=== PATIENT | female | born 1960 | race Caucasian/White ===

== ENCOUNTER 2017-09-26 15:09 | Emergency (ER) | payer BC ==
[2017-09-26] MEDS: morphine 4 MG/ML VIAL IV (17:15)
[2017-09-26] MEDS: ONDANSETRON 4 MG INJ IV (17:15)
[2017-09-26] MEDS: SOD CHLORIDE 0.9% 1,000 ML IV (17:15)
[2017-09-26 17:35] LABS: ADD MAN DIFF? NO
[2017-09-26 17:42] LABS: BASOPHILS % 0.6 % (0.0-2.0); EOSINOPHILS % 0.6 % (0.0-7.0); HEMATOCRIT 36.8 % (37.0-47.0); HEMOGLOBIN 12.9 g/dl (12.0-16.0); LYMPHOCYTES % 30.7 % (15.0-51.0); MEAN CORPUSCULAR HEMOGLOBIN 30.6 pg (29.0-33.0); MEAN CORPUSCULAR HGB CONC 35.1 g/dl (32.0-37.0); MEAN CORPUSCULAR VOLUME 87.2 fl (82.0-101.0); MEAN PLATELET VOLUME 11.1 fl (7.4-10.4); MONOCYTE # 0.1 10^3/ul (0.3-0.9); MONOCYTES % 3.4 % (0.0-11.0); NEUTROPHIL # 2.1 10^3/ul (1.6-7.5); NEUTROPHILS % 64.4 % (39.0-77.0); PLATELET COUNT 234 10^3/UL (140-415); RED BLOOD COUNT 4.22 10^6/ul (4.20-5.40); RED CELL DISTRIBUTION WIDTH 15.3 % (11.5-14.5)
[2017-09-26 17:42] LABS: WHITE BLOOD COUNT 3.2 10^3/ul (4.8-10.8)
[2017-09-26 17:56] LABS: ALANINE AMINOTRANSFERASE 31 IU/L (13-69); ALBUMIN 4.6 g/dl (3.3-4.9); ALBUMIN/GLOBULIN RATIO 1.43; ALKALINE PHOSPHATASE 46 IU/L (42-121); ASPARTATE AMINO TRANSFERASE 30 IU/L (15-46); BILIRUBIN,INDIRECT 0.6 mg/dl (0-1.1); BILIRUBIN,TOTAL 0.6 mg/dl (0.2-1.3); BLOOD UREA NITROGEN 13 mg/dl (7-20); CALCIUM 9.7 mg/dl (8.4-10.2); CARBON DIOXIDE 25 mmol/L (21-31); CHLORIDE 101 mmol/L (97-110); CREATINE KINASE 36 IU/L (23-200); CREATININE 0.63 mg/dl (0.44-1.00); GLUCOSE 274 mg/dl (70-220); SODIUM 137 mmol/L (135-144); TOTAL PROTEIN 7.8 g/dl (6.1-8.1)
[2017-09-26 17:59] LABS: ANION GAP 15 (8-16); POTASSIUM 4.3 mmol/L (3.5-5.1)
[2017-09-26 18:08] LABS: TROPONIN-I < 0.012 ng/ml (0.00-0.12)
== END 2017-09-26 18:51 | disposition home or self-care (01) ==
LOC: FTE 15:09
DX: M79.1 Myalgia (principal); E11.9 Type 2 diabetes mellitus without complications; C50.919 Malignant neoplasm of unspecified site of unspecified female breast
CPT/HCPCS: 36415; 80053; 82550; 84484; 85025; 96374; 96375; 99284-25

== ENCOUNTER 2017-10-15 09:33 | Emergency (ER) | payer BC ==
[2017-10-15] MEDS: HYDROmorphONE 1 MG/ML SYG IV (13:04)
[2017-10-15 13:16] LABS: ADD MAN DIFF? NO
[2017-10-15 13:18] LABS: WHITE BLOOD COUNT 2.8 10^3/ul (4.8-10.8)
[2017-10-15 13:18] LABS: ABNORMAL IP MESSAGE 1; BASOPHILS % 0.7 % (0.0-2.0); EOSINOPHILS # 0.1 10^3/ul (0.0-0.5); EOSINOPHILS % 3.2 % (0.0-7.0); HEMATOCRIT 36.7 % (37.0-47.0); HEMOGLOBIN 12.6 g/dl (12.0-16.0); LYMPHOCYTES # 0.6 10^3/ul (0.8-2.9); LYMPHOCYTES % 20.4 % (15.0-51.0); MEAN CORPUSCULAR HEMOGLOBIN 30.4 pg (29.0-33.0); MEAN CORPUSCULAR HGB CONC 34.3 g/dl (32.0-37.0); MEAN CORPUSCULAR VOLUME 88.6 fl (82.0-101.0); MONOCYTE # 0.1 10^3/ul (0.3-0.9); MONOCYTES % 2.9 % (0.0-11.0); NEUTROPHILS % 72.4 % (39.0-77.0); PLATELET COUNT 249 10^3/UL (140-415); RED BLOOD COUNT 4.14 10^6/ul (4.20-5.40); RED CELL DISTRIBUTION WIDTH 15.3 % (11.5-14.5)
[2017-10-15 13:20] LABS: ADD UMIC YES; UR ASCORBIC ACID 20 mg/dL (NEGATIVE); UR BILIRUBIN (Dip) NEGATIVE (NEGATIVE); UR BLOOD (Dip) NEGATIVE (NEGATIVE); UR CLARITY CLEAR (CLEAR); UR COLOR YELLOW (YELLOW); UR GLUCOSE (Dip) 2+ mg/dL (NEGATIVE); UR KETONES (Dip) NEGATIVE (NEGATIVE); UR LEUKOCYTE ESTERASE (Dip) 1+ Leu/ul (NEGATIVE); UR NITRITE (Dip) NEGATIVE (NEGATIVE); UR RBC 1 /HPF (0-5); UR SPECIFIC GRAVITY (Dip) 1.023 (1.003-1.030); UR TOTAL PROTEIN (Dip) NEGATIVE (NEGATIVE); UR UROBILINOGEN (Dip) NEGATIVE (NEGATIVE); UR WBC 5 /HPF (0-5)
[2017-10-15 13:32] LABS: INR 0.93; PARTIAL THROMBOPLASTIN TIME 26.2 Sec (25.0-35.0); PROTIME 12.5 Sec (11.9-14.9)
[2017-10-15 13:34] LABS: ALANINE AMINOTRANSFERASE 37 IU/L (13-69); ALBUMIN 4.3 g/dl (3.3-4.9); ALBUMIN/GLOBULIN RATIO 1.13; ALKALINE PHOSPHATASE 55 IU/L (42-121); ANION GAP 13 (8-16); ASPARTATE AMINO TRANSFERASE 33 IU/L (15-46); BILIRUBIN,INDIRECT 0.6 mg/dl (0-1.1); BILIRUBIN,TOTAL 0.6 mg/dl (0.2-1.3); BLOOD UREA NITROGEN 10 mg/dl (7-20); CALCIUM 9.6 mg/dl (8.4-10.2); CARBON DIOXIDE 25 mmol/L (21-31); CHLORIDE 103 mmol/L (97-110); CREATININE 0.53 mg/dl (0.44-1.00); GLUCOSE 217 mg/dl (70-220); POTASSIUM 4.4 mmol/L (3.5-5.1); SODIUM 137 mmol/L (135-144); TOTAL PROTEIN 8.1 g/dl (6.1-8.1)
[2017-10-15 13:37] LABS: LACTIC ACID 1.9 mmol/L (0.5-2.0)
[2017-10-15 13:46] LABS: TROPONIN-I 0.023 ng/ml (0.00-0.12)
== END 2017-10-15 16:35 | disposition home or self-care (01) ==
LOC: FTE 09:33
DX: M25.552 Pain in left hip (principal); M25.551 Pain in right hip; R07.9 Chest pain, unspecified; C50.911 Malignant neoplasm of unspecified site of right female breast; E11.9 Type 2 diabetes mellitus without complications
CPT/HCPCS: 36415; 71045; 80053; 81001; 83605; 84484; 85025; 85610; 85730; 87040; 87086; 87400; 93005; 96374; 99285-25

== ENCOUNTER 2017-11-05 16:19 | Emergency (ER) | payer BC ==
[2017-11-05] MEDS ORDERED: VANCOMYCIN 1 GM (PMX) 250 ML IVPB (18:30)
[2017-11-05 18:43] LABS: ADD MAN DIFF? NO
[2017-11-05] MEDS: LACTATED RINGER S IV (18:44)
[2017-11-05 18:45] LABS: WHITE BLOOD COUNT 2.8 10^3/ul (4.8-10.8)
[2017-11-05 18:45] LABS: BASOPHILS % 0.4 % (0.0-2.0); EOSINOPHILS # 0.1 10^3/ul (0.0-0.5); EOSINOPHILS % 3.6 % (0.0-7.0); HEMATOCRIT 35.9 % (37.0-47.0); HEMOGLOBIN 12.3 g/dl (12.0-16.0); LYMPHOCYTES # 0.8 10^3/ul (0.8-2.9); MEAN CORPUSCULAR HEMOGLOBIN 30.1 pg (29.0-33.0); MEAN CORPUSCULAR HGB CONC 34.3 g/dl (32.0-37.0); MEAN PLATELET VOLUME 10.6 fl (7.4-10.4); MONOCYTE # 0.1 10^3/ul (0.3-0.9); MONOCYTES % 2.5 % (0.0-11.0); NEUTROPHIL # 1.8 10^3/ul (1.6-7.5); NEUTROPHILS % 64.5 % (39.0-77.0); PLATELET COUNT 168 10^3/UL (140-415); RED BLOOD COUNT 4.08 10^6/ul (4.20-5.40); RED CELL DISTRIBUTION WIDTH 14.7 % (11.5-14.5)
[2017-11-05] MEDS: CEFEPIME 2GM/50 ML (PMX) 50 ML IVPB (18:45)
[2017-11-05] MEDS: KETOROLAC 15 MG INJ IV (18:45)
[2017-11-05 19:00] LABS: INR 0.89; PROTIME 12.1 Sec (11.9-14.9); PT RATIO 0.9
[2017-11-05 19:01] LABS: PARTIAL THROMBOPLASTIN TIME 26.6 Sec (25.0-35.0)
[2017-11-05 19:08] LABS: ALANINE AMINOTRANSFERASE 29 IU/L (13-69); ALBUMIN/GLOBULIN RATIO 1.17; ALKALINE PHOSPHATASE 52 IU/L (42-121); ANION GAP 16 (8-16); ASPARTATE AMINO TRANSFERASE 26 IU/L (15-46); BILIRUBIN,INDIRECT 0.3 mg/dl (0-1.1); BILIRUBIN,TOTAL 0.3 mg/dl (0.2-1.3); BLOOD UREA NITROGEN 12 mg/dl (7-20); CALCIUM 9.2 mg/dl (8.4-10.2); CARBON DIOXIDE 25 mmol/L (21-31); CHLORIDE 103 mmol/L (97-110); CREATININE 0.49 mg/dl (0.44-1.00); GLUCOSE 245 mg/dl (70-220); POTASSIUM 4.3 mmol/L (3.5-5.1); SODIUM 140 mmol/L (135-144); TOTAL PROTEIN 7.4 g/dl (6.1-8.1)
[2017-11-05 19:08] LABS: LACTIC ACID 1.9 mmol/L (0.5-2.0)
[2017-11-05 19:10] LABS: CREATINE KINASE 33 IU/L (23-200)
[2017-11-05 19:19] LABS: TROPONIN-I 0.016 ng/ml (0.00-0.12)
[2017-11-05] MEDS: morphine 4 MG/ML VIAL IV (19:48)
== END 2017-11-05 20:17 | disposition home or self-care (01) ==
LOC: E/R 20:17
DX: M79.1 Myalgia (principal); M79.605 Pain in left leg; M79.604 Pain in right leg; E11.9 Type 2 diabetes mellitus without complications
CPT/HCPCS: 71045; 80053; 82550; 83605; 84484; 85025; 85610; 85730; 87040; 93005; 93970; 96374; 96375; 99285-25

== ENCOUNTER 2017-11-07 14:01 | Emergency (ER) | payer BC ==
[2017-11-07] MEDS: ONDANSETRON 4 MG INJ IV (18:57)
[2017-11-07] MEDS: SOD CHLORIDE 0.9% 1,000 ML IV (18:57)
[2017-11-07] MEDS: morphine 4 MG/ML VIAL IV (18:57)
[2017-11-07 19:07] LABS: ADD MAN DIFF? NO
[2017-11-07 19:09] LABS: BASOPHILS % 0.4 % (0.0-2.0); EOSINOPHILS % 1.1 % (0.0-7.0); HEMATOCRIT 34.8 % (37.0-47.0); LYMPHOCYTES % 35.8 % (15.0-51.0); MEAN CORPUSCULAR HEMOGLOBIN 29.8 pg (29.0-33.0); MEAN CORPUSCULAR HGB CONC 34.5 g/dl (32.0-37.0); MEAN CORPUSCULAR VOLUME 86.4 fl (82.0-101.0); MEAN PLATELET VOLUME 10.8 fl (7.4-10.4); MONOCYTES % 1.5 % (0.0-11.0); NEUTROPHIL # 1.6 10^3/ul (1.6-7.5); NEUTROPHILS % 60.8 % (39.0-77.0); PLATELET COUNT 189 10^3/UL (140-415); RED BLOOD COUNT 4.03 10^6/ul (4.20-5.40); RED CELL DISTRIBUTION WIDTH 14.6 % (11.5-14.5)
[2017-11-07 19:09] LABS: WHITE BLOOD COUNT 2.7 10^3/ul (4.8-10.8)
[2017-11-07 19:30] LABS: ANION GAP 13 (8-16); BLOOD UREA NITROGEN 9 mg/dl (7-20); CALCIUM 9.3 mg/dl (8.4-10.2); CARBON DIOXIDE 27 mmol/L (21-31); CHLORIDE 105 mmol/L (97-110); CREATININE 0.44 mg/dl (0.44-1.00); GLUCOSE 216 mg/dl (70-220); SODIUM 141 mmol/L (135-144)
== END 2017-11-07 20:38 | disposition home or self-care (01) ==
LOC: E/R 14:01
DX: C50.911 Malignant neoplasm of unspecified site of right female breast (principal); G89.4 Chronic pain syndrome; I10 Essential (primary) hypertension; E11.9 Type 2 diabetes mellitus without complications
CPT/HCPCS: 36415; 80048; 85025; 96374; 96375; 99284-25

== ENCOUNTER 2018-08-19 17:47 | Emergency (ER) | payer BC ==
[2018-08-19] MEDS ORDERED: SODIUM CHLORIDE 0.9% 1L BAG IV* (18:12)
[2018-08-19 18:49] LABS: WHITE BLOOD COUNT 3.9 10^3/ul (4.8-10.8)
[2018-08-19 18:49] LABS: HEMATOCRIT 33.5 % (37.0-47.0); HEMOGLOBIN 10.9 g/dl (12.0-16.0); MEAN CORPUSCULAR HEMOGLOBIN 28.8 pg (29.0-33.0); MEAN CORPUSCULAR HGB CONC 32.5 g/dl (32.0-37.0); MEAN CORPUSCULAR VOLUME 88.4 fl (82.0-101.0); MEAN PLATELET VOLUME 9.6 fl (7.4-10.4); PLATELET COUNT 214 10^3/UL (140-415); RED BLOOD COUNT 3.79 10^6/ul (4.20-5.40); RED CELL DISTRIBUTION WIDTH 12.8 % (11.5-14.5)
[2018-08-19 18:52] LABS: ADD MAN DIFF? YES
[2018-08-19 18:58] LABS: ADD UMIC YES; UR ASCORBIC ACID NEGATIVE (NEGATIVE); UR BACTERIA FEW /HPF (NONE SEEN); UR BILIRUBIN (Dip) NEGATIVE (NEGATIVE); UR BLOOD (Dip) NEGATIVE (NEGATIVE); UR CLARITY CLOUDY (CLEAR); UR COLOR YELLOW (YELLOW); UR GLUCOSE (Dip) NEGATIVE (NEGATIVE); UR KETONES (Dip) NEGATIVE (NEGATIVE); UR LEUKOCYTE ESTERASE (Dip) 3+ Leu/ul (NEGATIVE); UR NITRITE (Dip) NEGATIVE (NEGATIVE); UR RBC 1 /HPF (0-5); UR SPECIFIC GRAVITY (Dip) 1.018 (1.003-1.030); UR SQUAMOUS EPITHELIAL CELL FEW /HPF (FEW); UR TOTAL PROTEIN (Dip) NEGATIVE (NEGATIVE); UR UROBILINOGEN (Dip) 2+ mg/dL (NEGATIVE); UR WBC 28 /HPF (0-5)
[2018-08-19 19:05] LABS: INR 0.98; PROTIME 13.1 Sec (11.9-14.9)
[2018-08-19 19:06] LABS: PARTIAL THROMBOPLASTIN TIME 29.9 Sec (23.0-35.0)
[2018-08-19 19:10] LABS: ALANINE AMINOTRANSFERASE 15 IU/L (13-69); ALBUMIN 3.9 g/dl (3.3-4.9); ALBUMIN/GLOBULIN RATIO 1.05; ALKALINE PHOSPHATASE 53 IU/L (42-121); ANION GAP 8 (5-13); ASPARTATE AMINO TRANSFERASE 22 IU/L (15-46); BILIRUBIN,INDIRECT 0.2 mg/dl (0-1.1); BILIRUBIN,TOTAL 0.2 mg/dl (0.2-1.3); BLOOD UREA NITROGEN 8 mg/dl (7-20); CALCIUM 9.1 mg/dl (8.4-10.2); CARBON DIOXIDE 30 mmol/L (21-31); CHLORIDE 103 mmol/L (97-110); CREATININE 0.67 mg/dl (0.44-1.00); Estimated GFR > 60 mL/min (>60); GLUCOSE 105 mg/dl (70-220); POTASSIUM 3.8 mmol/L (3.5-5.1); SODIUM 141 mmol/L (135-144); TOTAL PROTEIN 7.6 g/dl (6.1-8.1)
[2018-08-19 19:17] LABS: B-TYPE NATRIURETIC PEPTIDE 185 PG/ML (0-125)
== END 2018-08-19 19:54 | disposition home or self-care (01) ==
LOC: E/R 17:47
DX: R60.0 Localized edema (principal); E11.9 Type 2 diabetes mellitus without complications; I10 Essential (primary) hypertension; M79.671 Pain in right foot; Z79.4 Long term (current) use of insulin; Z85.3 Personal history of malignant neoplasm of breast
CPT/HCPCS: 36415; 71045; 80053; 81001; 83605; 83880; 85025; 85610; 85730; 87040; 99284-25

== ENCOUNTER 2018-08-21 13:45 | Emergency (ER) | payer BC | END 2018-08-21 14:50 | disposition home or self-care (01) | LOC: E/R 13:45 | DX: M79.674 Pain in right toe(s) (principal); E11.8 Type 2 diabetes mellitus with unspecified complications; M79.675 Pain in left toe(s); E11.21 Type 2 diabetes mellitus with diabetic nephropathy; Z79.4 Long term (current) use of insulin; Z85.3 Personal history of malignant neoplasm of breast | CPT/HCPCS: 82962; 99282 ==

== ENCOUNTER 2018-09-11 13:30 | Emergency (ER) | payer BC ==
[2018-09-11] MEDS: KETOROLAC 30 MG INJ IM (16:21)
== END 2018-09-11 16:36 | disposition home or self-care (01) ==
LOC: E/R 13:30
DX: M79.671 Pain in right foot (principal); M79.672 Pain in left foot; I10 Essential (primary) hypertension; E11.9 Type 2 diabetes mellitus without complications; C50.919 Malignant neoplasm of unspecified site of unspecified female breast; Z79.4 Long term (current) use of insulin
CPT/HCPCS: 96372; 99284-25

== ENCOUNTER 2018-10-02 12:04 | Emergency (ER) | payer BC ==
[2018-10-02] MEDS: HYDROCODONE/APAP (5/325) TAB PO (14:05)
== END 2018-10-02 14:36 | disposition home or self-care (01) ==
LOC: FTE 12:04
DX: M79.674 Pain in right toe(s) (principal); M79.675 Pain in left toe(s); E11.40 Type 2 diabetes mellitus with diabetic neuropathy, unspecified; M79.672 Pain in left foot; M79.671 Pain in right foot; C50.919 Malignant neoplasm of unspecified site of unspecified female breast; Z79.4 Long term (current) use of insulin
CPT/HCPCS: 82962; 99283

== ENCOUNTER 2018-10-24 16:52 | Inpatient (IN) | payer BC ==
[2018-10-24 22:33] LABS: ADD MAN DIFF? NO
[2018-10-24 22:34] LABS: BASOPHILS % 0.5 % (0.0-2.0); EOSINOPHILS # 0.1 10^3/ul (0.0-0.5); EOSINOPHILS % 1.6 % (0.0-7.0); HEMATOCRIT 38.1 % (37.0-47.0); HEMOGLOBIN 12.1 g/dl (12.0-16.0); LYMPHOCYTES # 1.2 10^3/ul (0.8-2.9); LYMPHOCYTES % 31.3 % (15.0-51.0); MEAN CORPUSCULAR HEMOGLOBIN 27.5 pg (29.0-33.0); MEAN CORPUSCULAR HGB CONC 31.8 g/dl (32.0-37.0); MEAN CORPUSCULAR VOLUME 86.6 fl (82.0-101.0); MEAN PLATELET VOLUME 10.8 fl (7.4-10.4); MONOCYTE # 0.4 10^3/ul (0.3-0.9); MONOCYTES % 9.5 % (0.0-11.0); NEUTROPHIL # 2.2 10^3/ul (1.6-7.5); NEUTROPHILS % 56.8 % (39.0-77.0); PLATELET COUNT 217 10^3/UL (140-415); RED CELL DISTRIBUTION WIDTH 13.6 % (11.5-14.5)
[2018-10-24 22:34] LABS: WHITE BLOOD COUNT 3.8 10^3/ul (4.8-10.8)
[2018-10-24 22:38] LABS: INR 0.89; PROTIME 12.2 Sec (11.9-14.9)
[2018-10-24 22:39] LABS: PARTIAL THROMBOPLASTIN TIME 28.9 Sec (23.0-35.0)
[2018-10-24 22:41] LABS: ANION GAP 7 (5-13); BLOOD UREA NITROGEN 7 mg/dl (7-20); CALCIUM 9.6 mg/dl (8.4-10.2); CARBON DIOXIDE 30 mmol/L (21-31); CHLORIDE 102 mmol/L (97-110); Estimated GFR > 60 mL/min (>60); GLUCOSE 224 mg/dl (70-220); POTASSIUM 3.9 mmol/L (3.5-5.1); SODIUM 139 mmol/L (135-144)
[2018-10-24 22:52] LABS: TROPONIN-I < 0.012 ng/ml (0.000-0.120)
[2018-10-25] MEDS ORDERED: NACL 0.9% 3 ML SYG IV (00:30)
[2018-10-25] MEDS ORDERED: ONDANSETRON 4 MG INJ IV (00:30)
[2018-10-25] MEDS ORDERED: ACETAMINOPHEN 325 MG TAB PO (00:30)
[2018-10-25] MEDS ORDERED: DEXTROSE 50% 50 ML SYRINGE IV ×2 (01:00)
[2018-10-25] MEDS ORDERED: GLUCOSE GEL 15 GRAM TUBE BUCCAL (01:00)
[2018-10-25] MEDS ORDERED: GLUCAGON 1 MG INJ IM (01:00)
[2018-10-25] MEDS ORDERED: GLUCOSE GEL 15 GRAM TUBE PO ×2 (01:00)
[2018-10-25] MEDS: traMADol 50 MG TAB PO (01:06)
[2018-10-25] MEDS: ACCU-CHEK XX (02:00)
[2018-10-25 02:32] LABS: CREATINE KINASE 48 IU/L (23-200)
[2018-10-25 02:45] LABS: CK INDEX 0.6; CK-MB 0.28 ng/ml (0.0-2.4); TROPONIN-I < 0.012 ng/ml (0.000-0.120)
[2018-10-25] MEDS: INSULIN ASPART [NOVOLOG] 3 ML PEN SC ×5 (02:50→20:32)
[2018-10-25] MEDS: HYDROCODONE/APAP (5/325) TAB PO ×3 (05:26→20:26)
[2018-10-25 06:47] LABS: ADD MAN DIFF? NO
[2018-10-25 06:52] LABS: BASOPHILS % 0.2 % (0.0-2.0); EOSINOPHILS # 0.1 10^3/ul (0.0-0.5); EOSINOPHILS % 1.4 % (0.0-7.0); HEMATOCRIT 35.7 % (37.0-47.0); HEMOGLOBIN 11.6 g/dl (12.0-16.0); LYMPHOCYTES # 1.1 10^3/ul (0.8-2.9); LYMPHOCYTES % 25.5 % (15.0-51.0); MEAN CORPUSCULAR HEMOGLOBIN 27.6 pg (29.0-33.0); MEAN CORPUSCULAR HGB CONC 32.5 g/dl (32.0-37.0); MONOCYTE # 0.5 10^3/ul (0.3-0.9); MONOCYTES % 11.2 % (0.0-11.0); NEUTROPHIL # 2.6 10^3/ul (1.6-7.5); NEUTROPHILS % 61.5 % (39.0-77.0); PLATELET COUNT 198 10^3/UL (140-415); RED CELL DISTRIBUTION WIDTH 13.7 % (11.5-14.5)
[2018-10-25 06:52] LABS: WHITE BLOOD COUNT 4.3 10^3/ul (4.8-10.8)
[2018-10-25 07:06] LABS: CREATINE KINASE 40 IU/L (23-200)
[2018-10-25 07:09] LABS: ALBUMIN/GLOBULIN RATIO 1.09; ANION GAP 7 (5-13); CHOL/HDL RATIO 4.9 RATIO; Estimated GFR > 60 mL/min (>60); LDL CHOLESTEROL,CALCULATED 124 mg/dl
[2018-10-25 07:13] LABS: ALANINE AMINOTRANSFERASE 18 IU/L (13-69); ALBUMIN 3.4 g/dl (3.3-4.9); ALKALINE PHOSPHATASE 57 IU/L (42-121); ASPARTATE AMINO TRANSFERASE 18 IU/L (15-46); BILIRUBIN,INDIRECT 0.1 mg/dl (0-1.1); BILIRUBIN,TOTAL 0.1 mg/dl (0.2-1.3); BLOOD UREA NITROGEN 9 mg/dl (7-20); CALCIUM 9.2 mg/dl (8.4-10.2); CARBON DIOXIDE 28 mmol/L (21-31); CHLORIDE 107 mmol/L (97-110); CHOLESTEROL 201 mg/dl (100-200); CREATININE 0.54 mg/dl (0.44-1.00); GLUCOSE 174 mg/dl (70-220); HDL CHOLESTEROL 41 mg/dl (37-92); POTASSIUM 3.7 mmol/L (3.5-5.1); SODIUM 142 mmol/L (135-144); TOTAL PROTEIN 6.5 g/dl (6.1-8.1); TRIGLYCERIDES 182 mg/dl (0-149)
[2018-10-25 07:21] LABS: CK INDEX 0.6; CK-MB < 0.22 ng/ml (0.0-2.4); TROPONIN-I < 0.012 ng/ml (0.000-0.120)
[2018-10-25] MEDS ORDERED: INSULIN ASPART [NOVOLOG] 3 ML PEN SC (08:00)
[2018-10-25 08:03] LABS: HEMOGLOBIN A1C 7.1 % (0-5.9)
[2018-10-25] MEDS: PROPRANOLOL 10 MG TAB PO (08:29)
[2018-10-25] MEDS: ASPIRIN 81 MG TAB PO (08:30)
[2018-10-25] MEDS: LISINOPRIL 5 MG TAB PO (08:30)
[2018-10-25] MEDS: FUROSEMIDE 20 MG TAB PO (08:30)
[2018-10-25] MEDS: HEPARIN 5,000 UNIT/1 ML VIAL SC ×2 (09:01→20:36)
[2018-10-25] MEDS: INSULIN DETEMIR [LEVEMIR] (100 UNITS/ML) SYG SC (09:01)
[2018-10-25] MEDS: ANASTROZOLE 1 MG TAB PO (10:46)
[2018-10-25] MEDS: ATORVASTATIN 10 MG TAB PO (20:26)
[2018-10-25] MEDS: GABAPENTIN 300 MG CAP PO (20:26)
[2018-10-25] MEDS: INSULIN GLARGINE [LANTus] (100 UNITS/ML) SYG SC (20:33)
[2018-10-25] MEDS ORDERED: INSULIN GLARGINE [LANtus] 3 ML PEN SC (21:00)
[2018-10-26] MEDS: ACCU-CHEK XX (02:00)
[2018-10-26] MEDS: HYDROCODONE/APAP (5/325) TAB PO ×4 (02:47→21:02)
[2018-10-26 05:59] LABS: ADD MAN DIFF? NO
[2018-10-26 06:18] LABS: BASOPHILS % 0.5 % (0.0-2.0); EOSINOPHILS # 0.1 10^3/ul (0.0-0.5); EOSINOPHILS % 1.6 % (0.0-7.0); HEMATOCRIT 38.8 % (37.0-47.0); HEMOGLOBIN 12.6 g/dl (12.0-16.0); LYMPHOCYTES # 1.2 10^3/ul (0.8-2.9); LYMPHOCYTES % 27.4 % (15.0-51.0); MEAN CORPUSCULAR HEMOGLOBIN 27.5 pg (29.0-33.0); MEAN CORPUSCULAR HGB CONC 32.5 g/dl (32.0-37.0); MEAN CORPUSCULAR VOLUME 84.7 fl (82.0-101.0); MEAN PLATELET VOLUME 10.2 fl (7.4-10.4); MONOCYTE # 0.4 10^3/ul (0.3-0.9); NEUTROPHIL # 2.7 10^3/ul (1.6-7.5); PLATELET COUNT 235 10^3/UL (140-415); RED BLOOD COUNT 4.58 10^6/ul (4.20-5.40)
[2018-10-26 06:18] LABS: WHITE BLOOD COUNT 4.4 10^3/ul (4.8-10.8)
[2018-10-26 06:47] LABS: ANION GAP 11 (5-13); BLOOD UREA NITROGEN 10 mg/dl (7-20); CALCIUM 9.8 mg/dl (8.4-10.2); CARBON DIOXIDE 29 mmol/L (21-31); CHLORIDE 102 mmol/L (97-110); Estimated GFR > 60 mL/min (>60); GLUCOSE 149 mg/dl (70-220); MAGNESIUM 2.1 mg/dl (1.7-2.5); PHOSPHORUS 4.7 mg/dl (2.5-4.9); POTASSIUM 3.9 mmol/L (3.5-5.1); SODIUM 142 mmol/L (135-144)
[2018-10-26] MEDS: INSULIN ASPART [NOVOLOG] 3 ML PEN SC ×4 (08:00→20:35)
[2018-10-26] MEDS: ASPIRIN 81 MG TAB PO (08:59)
[2018-10-26] MEDS: FUROSEMIDE 20 MG TAB PO (09:00)
[2018-10-26] MEDS: HEPARIN 5,000 UNIT/1 ML VIAL SC ×2 (09:07→20:34)
[2018-10-26] MEDS: ANASTROZOLE 1 MG TAB PO (09:10)
[2018-10-26] MEDS: traMADol 50 MG TAB PO (09:53)
[2018-10-26] MEDS: ATORVASTATIN 40 MG TAB PO (20:22)
[2018-10-26] MEDS: GABAPENTIN 300 MG CAP PO (20:22)
[2018-10-26] MEDS: INSULIN GLARGINE [LANTus] (100 UNITS/ML) SYG SC (20:34)
[2018-10-27] MEDS: ACCU-CHEK XX (02:13)
[2018-10-27] MEDS: HYDROCODONE/APAP (5/325) TAB PO ×4 (03:12→21:23)
[2018-10-27 06:21] LABS: ADD MAN DIFF? NO
[2018-10-27 06:26] LABS: WHITE BLOOD COUNT 3.9 10^3/ul (4.8-10.8)
[2018-10-27 06:26] LABS: BASOPHILS % 0.3 % (0.0-2.0); EOSINOPHILS # 0.1 10^3/ul (0.0-0.5); EOSINOPHILS % 2.3 % (0.0-7.0); HEMATOCRIT 38.9 % (37.0-47.0); HEMOGLOBIN 12.5 g/dl (12.0-16.0); LYMPHOCYTES # 1.3 10^3/ul (0.8-2.9); LYMPHOCYTES % 32.7 % (15.0-51.0); MEAN CORPUSCULAR HEMOGLOBIN 27.5 pg (29.0-33.0); MEAN CORPUSCULAR HGB CONC 32.1 g/dl (32.0-37.0); MEAN CORPUSCULAR VOLUME 85.7 fl (82.0-101.0); MEAN PLATELET VOLUME 10.4 fl (7.4-10.4); MONOCYTE # 0.4 10^3/ul (0.3-0.9); MONOCYTES % 10.7 % (0.0-11.0); NEUTROPHIL # 2.1 10^3/ul (1.6-7.5); NEUTROPHILS % 53.5 % (39.0-77.0); PLATELET COUNT 222 10^3/UL (140-415); RED BLOOD COUNT 4.54 10^6/ul (4.20-5.40); RED CELL DISTRIBUTION WIDTH 13.7 % (11.5-14.5)
[2018-10-27 06:46] LABS: MAGNESIUM 2.1 mg/dl (1.7-2.5)
[2018-10-27 07:06] LABS: ANION GAP 8 (5-13); BLOOD UREA NITROGEN 12 mg/dl (7-20); CALCIUM 9.7 mg/dl (8.4-10.2); CARBON DIOXIDE 27 mmol/L (21-31); CHLORIDE 105 mmol/L (97-110); CREATININE 0.55 mg/dl (0.44-1.00); Estimated GFR > 60 mL/min (>60); GLUCOSE 249 mg/dl (70-220); SODIUM 140 mmol/L (135-144)
[2018-10-27] MEDS: FUROSEMIDE 20 MG TAB PO (07:58)
[2018-10-27] MEDS: ASPIRIN 81 MG TAB PO (07:58)
[2018-10-27] MEDS: ANASTROZOLE 1 MG TAB PO (07:59)
[2018-10-27] MEDS: INSULIN ASPART [NOVOLOG] 3 ML PEN SC ×6 (08:00→21:41)
[2018-10-27] MEDS: HEPARIN 5,000 UNIT/1 ML VIAL SC ×2 (08:00→21:42)
[2018-10-27] MEDS: GABAPENTIN 300 MG CAP PO (21:19)
[2018-10-27] MEDS: ATORVASTATIN 40 MG TAB PO (21:19)
[2018-10-27] MEDS: INSULIN GLARGINE [LANTus] (100 UNITS/ML) SYG SC (21:41)
[2018-10-28] MEDS ORDERED: ACCU-CHEK XX (02:00)
[2018-10-28] MEDS: ACCU-CHEK XX (02:45)
[2018-10-28] MEDS: HYDROCODONE/APAP (5/325) TAB PO ×2 (05:47→11:36)
[2018-10-28] MEDS: INSULIN ASPART [NOVOLOG] 3 ML PEN SC ×4 (07:55→11:43)
[2018-10-28] MEDS: ASPIRIN 81 MG TAB PO (08:38)
[2018-10-28] MEDS: FUROSEMIDE 20 MG TAB PO (08:38)
[2018-10-28] MEDS: ANASTROZOLE 1 MG TAB PO (08:38)
[2018-10-28] MEDS: HEPARIN 5,000 UNIT/1 ML VIAL SC (08:42)
[2018-10-28] MEDS ORDERED: traMADol 50 MG TAB PO (11:30)
[2018-10-28] MEDS: GABAPENTIN 100 MG CAP PO (12:52)
== END 2018-10-28 16:05 | disposition home health service (06) | DRG 69 ==
LOC: 6WM 23:45 → E/R 16:52
DX: G45.9 Transient cerebral ischemic attack, unspecified (principal); E11.9 Type 2 diabetes mellitus without complications; I10 Essential (primary) hypertension; E78.5 Hyperlipidemia, unspecified; Z79.4 Long term (current) use of insulin; Z85.3 Personal history of malignant neoplasm of breast; Z90.11 Acquired absence of right breast and nipple; Z87.891 Personal history of nicotine dependence; Z79.82 Long term (current) use of aspirin
CPT/HCPCS: 36415; 70450; 70544; 70551; 70552; 71045; 80048; 80053; 80061; 82550; 82553; 82962; 83036; 83735; 84100; 84443; 84484; 85025; 85610; 85730; 92610; 93005; 93306; 93880; 97116; 97162; 97530; 99285-25; G0378

== ENCOUNTER 2019-04-14 18:02 | Emergency (ER) | payer MEDICAID, BC ==
[2019-04-14] MEDS: ACETAMINOPHEN 500 MG TAB PO (19:06)
== END 2019-04-14 20:15 | disposition home or self-care (01) ==
LOC: FTE 20:15
DX: M75.32 Calcific tendinitis of left shoulder (principal); E11.9 Type 2 diabetes mellitus without complications; Z85.3 Personal history of malignant neoplasm of breast; Z79.4 Long term (current) use of insulin; Z87.891 Personal history of nicotine dependence
CPT/HCPCS: 73030; 73060; 93971; 99284-25

== ENCOUNTER 2019-04-16 13:17 | Emergency (ER) | payer MEDICAID ==
[2019-04-16] MEDS: HYDROCODONE/APAP (5/325) TAB PO (14:32)
[2019-04-16] MEDS: predniSONE 20 MG TAB PO (14:32)
== END 2019-04-16 14:45 | disposition home or self-care (01) ==
LOC: FTE 13:17
DX: M54.12 Radiculopathy, cervical region (principal); E11.9 Type 2 diabetes mellitus without complications; Z79.4 Long term (current) use of insulin; Z85.3 Personal history of malignant neoplasm of breast
CPT/HCPCS: 99283; J7512

== ENCOUNTER 2019-04-30 13:38 | Emergency (ER) | payer BC, MEDICAID ==
[2019-04-30] MEDS: KETOROLAC 15 MG INJ IM (17:01)
== END 2019-04-30 17:47 | disposition home or self-care (01) ==
LOC: E/R 13:38
DX: M25.512 Pain in left shoulder (principal); I10 Essential (primary) hypertension; E11.9 Type 2 diabetes mellitus without complications; Z79.4 Long term (current) use of insulin; Z87.891 Personal history of nicotine dependence; Z85.3 Personal history of malignant neoplasm of breast
CPT/HCPCS: 93005; 96372; 99284-25

== ENCOUNTER 2019-05-01 11:23 | Emergency (ER) | payer BC ==
[2019-05-01] MEDS: DIPHENHYDRAMINE 50 MG CAP PO (11:57)
[2019-05-01] MEDS: FAMOTIDINE 20 MG TAB PO (11:57)
[2019-05-01] MEDS: predniSONE 20 MG TAB PO (11:58)
== END 2019-05-01 13:13 | disposition home or self-care (01) ==
LOC: FTE 11:23
DX: M79.89 Other specified soft tissue disorders (principal); E11.9 Type 2 diabetes mellitus without complications; Z85.3 Personal history of malignant neoplasm of breast; Z79.4 Long term (current) use of insulin; Z87.891 Personal history of nicotine dependence
CPT/HCPCS: 76536; 93971; 99284-25

== ENCOUNTER 2019-05-18 16:59 | Emergency (ER) | payer BC ==
[2019-05-18] MEDS: KETOROLAC 30 MG INJ IM (18:07)
== END 2019-05-18 19:25 | disposition home or self-care (01) ==
LOC: E/R 16:59
DX: R20.2 Paresthesia of skin (principal); E11.9 Type 2 diabetes mellitus without complications; F17.210 Nicotine dependence, cigarettes, uncomplicated; M79.602 Pain in left arm; Z79.4 Long term (current) use of insulin; Z85.3 Personal history of malignant neoplasm of breast
CPT/HCPCS: 73030; 93005; 96372; 99284-25